=== PATIENT | male | born 1965 | race African-American/Black ===

== ENCOUNTER 2016-04-05 15:08 | Emergency (ER) | payer MEDICAID ==
[~2016-04-05] VITALS: Ht 188 cm; Wt 136.1 kg
[~2016-04-05 15:08] MED LIST: AUGMENTIN 875-1 EAC1 ORAL; AZITHROMYCIN250 MG ORAL; NKM
[2016-04-05] MEDS ORDERED: Glucagon 1mg Inj IM ONE (15:45)
[2016-04-05 16:19] VITALS: BP 117/84
--- NOTE | 2016-04-05 16:23 | Diagnostic Imaging Report ---
Indication: Dyspnea Comparison: 03/05/16 2 views of the chest obtained. Findings: Cardiomediastinal silhouette and pulmonary vascularity are within normal limits for age. The diaphragmatic contour is smooth and costophrenic angles are sharp. No pleural effusions are identified. The bones are unremarkable. Impression: No acute disease
--- NOTE | 2016-04-05 16:41 | Emergency Room Report ---
History of Present Illness General Chief Complaint: General Complaint Source: Patient Present Illness [facility] The patient is a 51-year-old male presenting for possible esophageal foreign body. The patient states that he was eating"chitlins" one hour prior and felt a peice get stuck in his throat. The pt denies any pain but states it is now difficult to swallow both food and water. The pt states this has never happened before. Pt denies difficulty breathing, CP, SOB, wheezing, cough, abd pain Allergies: Coded Allergies: BANANA (Verified Allergy, Unknown, swelling, 03/05/16) EGG (Verified Allergy, Unknown, Nausea, 02/17/16) Patient History Past Medical History: see triage record Pertinent Family History: none Reviewed Nursing Documentation: PMH: Agreed, PSxH: Agreed Nursing Documentation-PMH Past Medical History: No History, Except For Review of Systems All Other Systems: negative except mentioned in HPI Physical Exam Vital Signs Date Time Temp Pulse Resp B/P Pulse Ox O2 Delivery O2 Flow Rate FiO2 04/05/16 15:13 98.2 91 15 117/84 99 Room Air Sp02 EP Interpretation: reviewed, normal General Appearance: no apparent distress, alert, GCS 15, non-toxic Head: normocephalic, atraumatic Eyes: bilateral eye PERRL, bilateral eye normal inspection ENT: hearing grossly normal, normal pharynx, no angioedema, normal voice, uvula midline, moist mucus membranes Neck: full range of motion, supple/symm/no masses Respiratory: chest non-tender, lungs clear, normal breath sounds, speaking full sentences Cardiovascular #1: regular rate, rhythm, no edema Cardiovascular #2: 2+ carotid (R), 2+ carotid (L), 2+ radial (R), 2+ radial (L) , 2+ dorsalis pedis (R), 2+ dorsalis pedis (L) Gastrointestinal: normal bowel sounds, non tender, soft, non-distended, no guarding, no rebound Rectal: deferred Genitourinary: normal inspection, no CVA tenderness Musculoskeletal: back normal, gait/station normal, normal range of motion, non- tender Neurologic: alert, oriented x3, responsive, motor strength/tone normal, sensory intact, speech normal Psychiatric: judgement/insight normal, memory normal, mood/affect normal, no suicidal/homicidal ideation Reflexes: 3+ bicep (R), 3+ bicep (L), 3+ tricep (R), 3+ tricep (L), 3+ knee (R) , 3+ knee (L) Skin: normal color, no rash, warm/dry, well hydrated Lymphatic: no adenopathy Medical Decision Making PA Attestation Dr. Bass is my supervising physician. Patient management was discussed with my supervising physician Diagnostic Impression: Primary Impression: Dysphagia ER Course The patient is a 51-year-old male presenting for dysphagia after eating "chitlins" this afternoon DDx: esophageal foreign body, esophagitis, GERD, pharyngitis PE: Vitals WNL. NAD HEENT: Oropharynx is patent. No tonsillar edema or erythema. Uvula midline. Otherwise unremarkable Lungs are clear to auscultation bilaterally Two-view chest x-ray is unremarkable. No foreign body. The pt was given glucagon and states he is feeling better. The pt was given two trials of PO liquids and was able to keep the liquid down. The pt states he is able to now swallow without difficulty. ER precautions given and pt DC'ed Chest X-Ray Diagnostic Results Findings: no consolidation, no effusion, no pneumothorax, other - no FB Number of Views: 2 PA Scribe Text I am acting as scribe for my supervising physician. My supervising physician's interpretation of the chest xrays are there is no consolidation, no effusion, no acute cardiopulmonary disease, no pneumothorax Last Vital Signs Date Time Temp Pulse Resp B/P Pulse Ox O2 Delivery O2 Flow Rate FiO2 04/05/16 16:19 98.3 91 15 117/84 99 Room Air Status: improved Disposition: HOME, SELF-CARE Condition: Improved Patient Instructions: Dysphagia Additional Instructions: I discussed my findings with the patient. All questions and concerns have been answered. Treatment and medication compliance have been addressed. I advised the patient that they need to follow up with PMD in 3-5 days. Return to ED if symptoms worsen, new symptoms arise, or if needed for any reason. Patient verbalized understanding of discharge instructions. MONIKA NEAL Apr 05, 2016 16:41
== END 2016-04-05 16:22 | disposition home or self-care (01) ==
LOC: EMR 15:27
DX: R13.10 Dysphagia, unspecified (principal); Z91.018 Allergy to other foods; Z91.012 Allergy to eggs
CPT/HCPCS: 71020; 96372; 99283; J1610

== ENCOUNTER 2018-06-16 11:49 | Emergency (ER) | payer MEDICAID ==
[~2018-06-16] VITALS: Ht 182.9 cm; Wt 136.1 kg
[2018-06-16 11:51] VITALS: BP 150/86
--- NOTE | 2018-06-16 11:54 | NUR ---
ED Nurse Note: BROUGHT IN BY [facility] FROM HOME DUE TO RIGHT LOWER BACK PAIN 10/ S/P TRIPPED AND FELL YESTERDAY. DENIES HEAD INJURY. NO TRAUMA.
--- NOTE | 2018-06-16 12:05 | Emergency Room Report ---
History of Present Illness General Chief Complaint: Multiple Trauma/Fall Source: Patient Present Illness HPI 53-year-old male patient presents the ER brought in by ambulance complaining of low back pain times 1 day. Reports that yesterday he was walking when he had a mechanical trip and fall at ground level, states tripped over a "divider". Reports that he twisted while falling and fell onto his back. Denies hitting his head or loss consciousness. Denies syncope or dizziness prior to fall. Reports history of back problems in the past. Denies bowel bladder incontinence. Reports back pain is worse on his right lower side and radiates down his legs. Denies history of back surgery. Denies other aggravating or relieving factors. Denies arms or wrist pain. Reports history of "thin cartilage" in his back. 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 States that he normally does not take any medication for pain, states that he "deals with it". Reports sometimes given pain medication for acute exacerbations by his partner. Allergies: Coded Allergies: BANANA (Verified Allergy, Unknown, swelling, 03/05/16) EGG (Verified Allergy, Unknown, Nausea, 02/17/16) Patient History Past Medical History: see triage record Reviewed Nursing Documentation: PMH: Agreed; PSxH: Agreed Nursing Documentation-PMH Past Medical History: No Stated History Review of Systems All Other Systems: negative except mentioned in HPI Physical Exam Vital Signs Date Time Temp Pulse Resp B/P (MAP) Pulse Ox O2 Delivery O2 Flow Rate FiO2 06/16/18 11:40 98.1 94 12 150/86 97 Room Air Medical Decision Making PA Attestation Dr. Fine is my supervising Physician whom patient management has been discussed with. Diagnostic Impression: Primary Impression: Anterolisthesis Additional Impressions: Fall Lumbar foraminal stenosis ER Course Pt presents to ED c/o back pain s/p fall. DDX considered but are not limited to sprain, strain, cauda equina, fracture. Low suspicion for cauda equina, no bowel or bladder incontinence or retention. VITAL SIGNS are WNL, patient is afebrile ER COURSE: Pain medication provided. CT lumbar spine shows anterolisthesis of L4 relative to L5, degenerative changes at L5-S1, osteophytes/bulge, severe bilateral bony neural foraminal stenosis at L5-S1, facet arthrosis. Discuss results with the patient. Provided patient with copy of results. Instructed patient to followup with PCP and discuss results of report with patient, discuss need for further treatment and referral. Provided with contact information for free low-cost healthcare clinics. Followup with pain management and/or PT. Request referral from PCP. Followup with PCP for further MRI. Patient reports pain symptoms improved. Okay for outpatient follow-up and treatment. Patient is able to ambulate. ER precautions given. DISCHARGE: At this time pt. is stable for d/c to home. At this time patient is resting comfortably, in no acute distress, nontoxic appearing, smiling and talking without difficulty. Will provide printed patient care instructions, and any necessary prescriptions. Patient instructed to follow with primary care provider for further treatment and referral as needed. Care plan and follow up instructions have been discussed with the patient prior to discharge. Patient reports understanding and agreement to treatment plan. Patient questions asked and answered. ER precautions given, patient instructed to return to ER immediately for any new or worsening of symptoms. - Please note that this Emergency Department Report was dictated using spotflux[employer] specialist technology software, occasionally this can lead to erroneous entry secondary to interpretation by the dictation equipment. CT/MRI/US Diagnostic Results CT/MRI/US Diagnostic Results : Imaging Test Ordered: CT lumbar spine Impression 1. Grade 1 anterolisthesis of L4 relative to L5. No associated spondylolysis. 2. Severe degenerative changes at L5-S1, with prominent anterior and posterior osteophytes/bulge. Associated moderate to severe bilateral bony neural foraminal stenosis at L5-S1. 3. Bilateral facet arthrosis, most prominent at L4-5 and L5-S1. Last Vital Signs Date Time Temp Pulse Resp B/P (MAP) Pulse Ox O2 Delivery O2 Flow Rate FiO2 06/16/18 11:51 94 12 Room Air 06/16/18 11:51 98.1 150/86 97 Status: improved Disposition: HOME, SELF-CARE Condition: Stable Scripts Hydrocodone Bit/Acetaminophen 5-325* (NORCO 5-325*) 1 Each Tablet 1 TAB ORAL Q6H PRN for For Pain, #8 TAB 0 Refills Prov: Roderick Garces P.A. 06/16/18 Ibuprofen* (MOTRIN*) 600 Mg Tablet 600 MG ORAL Q8H PRN for For Pain, #30 TAB 0 Refills Prov: Roderick Garces 06/16/18 Lidocaine (Lidocaine) 1 Each Adh..patch 5 % TP DAILY for 7 Days, #7 PATCH Prov: Roderick Garces 06/16/18 Patient Instructions: Back Pain, Adult, [id number], Degenerative Disk Disease , Fall Prevention in the Home, [id number], Spondylolisthesis With Rehab- [facility] Additional Instructions: Patient instructed to follow up with primary care provider 3-5 and discuss further referral to PT/pain management/ortho and need for MRI imaging at that time. Patient instructed on rest, ice and heat. Do not take medication prior to drinking, driving, or operating heavy machinery. Take medications as directed. Patient questions asked and answered. ER precautions given, patient instructed to return to ER immediately for any new or worsening of symptoms. [facility] [address] [facility], [id number] [email or web address] Roderick Garces Jun 16, 2018 12:05
--- NOTE | 2018-06-16 12:10 | NUR ---
ED Nurse Note: PT WENT DOWN FOR CT
[2018-06-16] MEDS ORDERED: HYDROcodone/Acetamin 5/325 tab ORAL ONE (12:15)
--- NOTE | 2018-06-16 13:09 | Diagnostic Imaging Report ---
EXAM: CT Lumbar Spine Without Intravenous Contrast CLINICAL HISTORY: PAIN TECHNIQUE: Axial computed tomography images of the lumbar spine without intravenous contrast. Coronal and sagittal images were obtained and reviewed. CTDI is 29 mGy and DLP is 962 mGy-cm. One or more of the following dose reduction techniques were used: automated exposure control, adjustment of the mA and/or kV according to patient size, use of iterative reconstruction technique. COMPARISON: No relevant prior studies available. FINDINGS: Vertebrae: Grade 1 anterolisthesis of L4 relative to L5. No associated spondylolysis. 5 nonrib-bearing lumbar vertebral segments. Lumbar vertebral body heights are preserved. No evidence of acute fracture. Discs/spinal canal/neural foramina: Severe degenerative disc space loss and endplate osteophytes at L5-S1, with prominent posterior osteophytes/bulge. Associated moderate to severe bilateral bony neural foraminal stenosis at L5-S1. Bilateral facet arthrosis, most prominent at L4-5 and L5-S1. Soft tissues: Unremarkable. IMPRESSION: 1. Grade 1 anterolisthesis of L4 relative to L5. No associated spondylolysis. 2. Severe degenerative changes at L5-S1, with prominent anterior and posterior osteophytes/bulge. Associated moderate to severe bilateral bony neural foraminal stenosis at L5-S1. 3. Bilateral facet arthrosis, most prominent at L4-5 and L5-S1.
[2018-06-16] MEDS ORDERED: LIDOCAINE700 M1 TP (13:24)
[2018-06-16] MEDS ORDERED: IBUPROFEN600 MG ORAL (13:24)
[2018-06-16] MEDS ORDERED: NORCO 5-325 TA1 EACH ORAL (13:24)
[2018-06-16 13:36] VITALS: BP 150/86
--- NOTE | 2018-06-16 13:54 | NUR ---
ER DISCHARGE NOTE: Patient is cleared to be discharged per ERMD, pt is aox4, on room air, with stable vital signs. pt was given dc and prescription instructions, pt was able to verbalize understanding, pt. was taken home via private vehicle by his family, pt took all belongings.
== END 2018-06-16 14:00 | disposition home or self-care (01) ==
LOC: EDBD 11:49 → EMR 12:23
DX: M51.36 Other intervertebral disc degeneration, lumbar region (principal); M48.061 Spinal stenosis, lumbar region without neurogenic claudication; W01.0XXA Fall on same level from slipping, tripping and stumbling without subsequent striking against object, initial encounter; Y93.01 Activity, walking, marching and hiking; Z91.012 Allergy to eggs; Z91.018 Allergy to other foods
CPT/HCPCS: 72131; 99284